=== PATIENT | female | born 1970 | race Caucasian/White ===

== ENCOUNTER 2018-07-25 04:25 | Emergency (ER) | payer OTHER ==
--- OUTSIDE RECORDS SUMMARY | 2018-07-25 04:27 | XMS REPORT | Clinical Summary ---
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 thickened and poorly mobile. Severe prosthetic mitral stenosis. Estimated mean mitral valve gradient 30 mmHg at a heart rate of 89 b/min, with a valve area of 1.25 cm2. Mitral valve high velocity and pressure gradient is in part due to high CO. Insufficient TR jet to estimate PA systolic pressure. However, PA pressures are elevated based on MS velocities. FINDINGS: LV: LV size is normal. LV EF is normal. Overall wall motion is normal. Estimated EF is 65-69% RV: RV size is normal. RV systolic function is normal. LA: LA volume is severely enlarged. RA: RA size is normal. AO: Aortic root diameter is normal in size. Ascending aorta diameter is normal. RUFINO: No pericardial effusion. AV: No structural AV abnormalities noted. MV: Bioprosthetic mitral valve implanted with an angle towards the LVOT. Cusps are thickened and poorly mobile. Severe prosthetic mitral stenosis. Estimated mean mitral valve gradient 30 mmHg at a heart rate of 89 b/min, with a valve area of 1.25 cm2. Mitral valve high velocity and pressure gradient is in part due to high flow state. PV: No structural PV abnormalities noted. A trace of pulmonic regurgitation. TV: No structural TV abnormalities noted. Other: Insufficient TR jet to estimate PA systolic pressure. However, PA pressures are elevated based on MS velocities. MEASUREMENTS: 2D Parasternal [place] LVOT 1.9 cm LA Ds 3.6 cm LVIDd 4.3 cm Index 2.8 cm/m Ao An 2.1 cm LVIDs 2.2 cm Ao Rtd 2.9 cm Index 1.9 cm/m LV%fs 48.8 % LV Mass 123.3 g (87-129) IVSd 1 cm LVM Index 79.5 g/m2 LVPWd 0.8 cm RWT 0.4 LA Sng Plane LA Area 24.7 cm2 (8.8-23.4) LA Vol 93.9 ml Index 60.6 ml/m LA LngAx 5.3 cm DOPPLER LVOT Forward Flow LVOTpkVel 147.1 cm/s LVOTpkPG 8.7 mmHg LVOT TVI 29.6 cm LVOTmnPG 5.1 mmHg MV For Flow/Valve Assess MV pkVel 274.7 cm/s MV Mean G 16.5 mmHg MV pkPG 30.2 mmHg MV TVI 74.2 cm RVOT Stroke Vol reji 2.6 cm CO 8.2 l/min TVI 17.3 cm CI 5.3 l/m/m2 Tm 322 msec HR 88 bpm SV 93 ml Signed 01/26/2018 10:48 AM Ruben Miller M.D. Performing Organization Address City/State/Zipcode Phone Number [facility] [address] [place] [address] Thyroid stimulating hormone (01/26/2018 4:00 AM WEATHER ALGORITHM SCIENTIST) TSH 0.54 0.27 - 4.20 uIU/mL [facility] Specimen Plasma specimen Performing Organization Address City/[facility] Phone Number [facility] DEPARTMENT OF PATHOLOGY AND [address] [place] [phone] [address] T4, free (01/26/2018 4:00 AM WEATHER ALGORITHM SCIENTIST) T4, free 1.3 0.9 - 1.7 ng/dL [facility] Specimen Plasma specimen Performing Organization Address [facility] Phone Number [facility] DEPARTMENT OF PATHOLOGY AND [address] [place] [phone] [address] Lipid panel (01/26/2018 4:00 AM WEATHER ALGORITHM SCIENTIST) Cholesterol 130 <200 mg/dL [facility] Triglycerides 117 <150 mg/dL [facility] HDL cholesterol 35 (L) >40 mg/dL [facility] LDL cholesterol 76Comment: Result <100 mg/dL [place] obtained by direct RELIGION LDL measurement [facility] Lipid panel [facility] interpretation Comment: RELIGION Total Cholesterol (mg/dL) [facility] <200 Desirable 020-275Fcgfoyilfl-lxqw >=240High Triglycerides (mg/dL) <150 Normal 834-501Khtjlivqfy-ykcb 200-499High >=500Very high HDL Cholesterol (mg/dL) <40Low (male) <40Low (female) LDL Cholesterol (mg/dL) <100 Optimal 100-129Near or above optimal 497-847Pyjnnzbszd-zori 160-189High >=190Very high Risk Catergories that modify LDL goals. Risk CatergoriesLDL goal (mg/dL) CHD and CHD risk equivalent<100 (10-year risk >20%) Multiple (2+) risk factors <130 (10-year risk=<20%) 0-1 risk factors <160 (<10-year risk) Defining levels of lipids in metabolic syndrome Triglycerides>=150 mg/dL HDL Cholesterol Men<40 mg/dL Women<40 mg/dL Non-HDL cholesterol is a second target for therapy in persons with high triglycerides (>=200 mg/dL) Specimen Plasma specimen Performing Organization Address [facility]/Zipcode Phone Number [facility] DEPARTMENT OF PATHOLOGY AND [address] [place] [phone] [place] [address] XR Abdomen Acute Inc Chest (01/25/2018 8:27 PM WEATHER ALGORITHM SCIENTIST) Specimen Narrative Performed At EXAMINATION: XR ABDOMEN ACUTE INC CHEST RADIANT CLINICAL HISTORY: Nauseavomiting COMPARISON:03/13/2012 chest x-ray. IMPRESSION: Nonspecific, nonobstructive bowel gas pattern. No free intraperitoneal gas or air-fluid levels visualized. The lungs are clear. No pleural effusion or pneumothorax. The cardiomediastinal silhouette is normal. Prior sternotomy. No acute bony abnormality. [facility]-[id number] Procedure Note Interface, Radiology Results Incoming - 01/25/2018 8:41 PM WEATHER ALGORITHM SCIENTIST EXAMINATION: XR ABDOMEN ACUTE INC CHEST CLINICAL HISTORY: Nausea vomiting COMPARISON: 03/13/2012 chest x-ray. IMPRESSION: Nonspecific, nonobstructive bowel gas pattern. No free intraperitoneal gas or air-fluid levels visualized. The lungs are clear. No pleural effusion or pneumothorax. The cardiomediastinal silhouette is normal. Prior sternotomy. No acute bony abnormality. [facility]-[id number] Performing Organization Address City/[facility] Centercode Phone Number [address] [address] Alcohol level, blood (01/25/2018 7:35 PM WEATHER ALGORITHM SCIENTIST) Alcohol None Detected mg/dL [facility] Comment: HOSPITAL Normal None Detected Legal Intoxication in [place]80 mg/dL (0.08%) - Whole Blood Toxic Kqiuzvpkopjlt125 mg/dL (0.2%) Potentially Dmkas588 - 500 mg/dL (0.35 - 0.5%) Alcohol percent None Detected % [facility] Specimen Plasma specimen Performing Organization Address City/[facility] Centercofl Phone Number [facility] DEPARTMENT OF PATHOLOGY AND [address] [place] [phone] [facility] MEDICINE [address] [address] Troponin (01/25/2018 5:50 PM WEATHER ALGORITHM SCIENTIST) Troponin <0.30 0.00 - 0.30 [facility] Comment: ng/mL [facility] 0.30 - 1.49 ng/mlMay indicate increased risk of acute coronary syndrome. >=1.5 ng/mlConsistent with acute myocardial infarction. The diagnostic value of a single normal or non-diagnostic result is questionable.Serial samples at 2-6 hour intervals are required to rule out acute myocardial injury. Specimen Plasma specimen Performing Organization Address City/State/Zipcode Phone Number [facility] DEPARTMENT OF PATHOLOGY AND [address] [place] [address] [address] B natriuretic peptide (01/25/2018 5:50 PM WEATHER ALGORITHM SCIENTIST) BNP 153 (H) 0 - 100 pg/mL [facility] Specimen Blood Performing Organization Address City/[facility] Centercode Phone Number [facility] DEPARTMENT OF PATHOLOGY AND [address] [place] [phone] [address] Comprehensive metabolic panel (01/25/2018 5:50 PM WEATHER ALGORITHM SCIENTIST) Sodium 137 135 - 148 [facility] mEq/L [facility] Potassium 3.5 3.5 - 5.0 [facility] mEq/L [facility] Chloride 99 98 - 112 mEq/L [facility] CO2 22 (L) 24 - 31 mEq/L [facility] Anion gap 16@ANIO (H) 7 - 15 mEq/L [facility] BUN 32 (H) 6 - 20 mg/dL [facility] Creatinine 1.49 (H) 0.50 - 0.90 [facility] mg/dL HOSPITAL Glucose 116 (H) 65 - 99 mg/dL [facility] Calcium 9.1 8.3 - 10.2 [facility] mg/dL [facility] Protein 6.9 6.3 - 8.3 g/dL [facility] Comment: HOSPITAL [place] 4.6-7.0 g/dL 1 week 4.4-7.6 g/dL 7 months-1year5.1-7.3 g/dL 1-2 years5.6-7.5 g/dL >3 years6.0-8.0 g/dL 18-150 6.3-8.3 g/dL Albumin 3.6 3.5 - 5.0 g/dL [facility] A/G ratio 1.1 0.7 - 3.8 [facility] Alkaline phosphatase 58 35 - 104 U/L [facility] AST 36 (H) 10 - 35 U/L [facility] ALT 41 5 - 50 U/L [facility] Total bilirubin 0.6 0.0 - 1.2 [facility] mg/dL HOSPITAL Specimen Plasma specimen Performing Organization Address City/State/Zipcode Phone Number [facility] DEPARTMENT OF PATHOLOGY AND [address] [place] [address] GENOMIC MEDICINE [facility] [address] [place] [address] ECG 12 lead (01/25/2018 5:27 PM WEATHER ALGORITHM SCIENTIST) Ventricular rate 92 [facility] Atrial rate 92 [facility] MS interval 144 [facility] QRSD interval 100 [facility] QT interval 390 [facility] QTC interval 482 [facility] P axis 1 -26 [facility] QRS axis 1 84 [facility] T wave axis 73 [facility] EKG impression Sinus rhythm with occasional premature ventricular complexes- Possible Anterior infarct , age undetermined-Abnormal ECG-In automated comparison with ECG of 25-NOV-2016 16:52,-premature ventricular comple [facility] MUSE xes are now present- Specimen Narrative Performed At Performing Organization Address City/[facility]/Zipcode Phone Number [facility] [address] [place] [address] after 07/24/2017 Insurance Payer Benefit Plan / Subscriber ID Effective Dates Phone Address Type Group MEDICARE MEDICARE PART A xxxxxxxxxxx 2005-Present [place], [place] Medicare AND B ([place]) [place] [address] Advance Directives Patient has advance care planning documents, and code status on file. For more information, please contact:[facility] [place] [phone] Code Status Date Activated Date Inactivated Comments Full Code 01/25/2018 11:35 PM 01/27/2018 5:45 PM Code Status decision reached by: Patient
--- OUTSIDE RECORDS SUMMARY | 2018-07-25 04:28 | XMS REPORT ---
:1970 Author Organization [facility] Address [address] [place] [address] Care Team Providers Name Role Phone Unavailable Unavailable Unavailable Problems This patient has no known problems. Allergies, Adverse Reactions, Alerts This patient has no known allergies or adverse reactions. Medications This patient has no known medications.
[2018-07-25 06:11] LABS: Urine Blood 3+ (NEG); Urine Glucose NEGATIVE (NEG); Urine Specific Gravity 1.015 (1.005-1.030)
[2018-07-25 06:12] LABS: Urine Protein NEGATIVE (NEG)
[2018-07-25 06:20] LABS: Absolute Lymphocytes (CBC) 2.1 K/uL (0.7-4.9); Absolute Monocytes 0.6 K/uL (0.1-1.3); Absolute Neutrophil 2.8 K/uL (1.8-8.0); Basophils % 1.3 % (0-1.3); Eosinophils % 3.3 % (0-4.4); Hematocrit 40.4 % (36.0-45.0); Lymphocytes % 36.8 % (15.3-44.8); Monocytes % 9.9 % (3.3-12.3); RBC Red Blood Cell Count 4.36 M/uL (3.86-4.86)
[2018-07-25 06:29] LABS: Barbiturates NEGATIVE (NEGATIVE); Benzodiazepines POSITIVE (NEGATIVE); Cocaine NEGATIVE (NEGATIVE); METHAMPHETAM POSITIVE (NEGATIVE); Methadone NEGATIVE (NEGATIVE); Opiates NEGATIVE (NEGATIVE); Phencyclidine NEGATIVE (NEGATIVE); THC Cannibis POSITIVE (NEGATIVE)
[2018-07-25 06:33] LABS: Potassium 3.1 mmol/L (3.5-5.1); Protime INR 1.03
--- NOTE | 2018-07-25 06:44 | ER ---
Nurse's Notes [facility] Name: Naveen Collazo Age: 48 yrs Sex: Female : 1970 Arrival Date: 07/25/2018 Time: 04:26 Bed 4 Private MD: Diagnosis: Transient Ishemic Attack. Substance abuse Presentation: 07/25 04:47 Presenting complaint: Patient states: she is feeling very strange with symptoms bb starting approx 6 hours ago pt states she is having a lot of body pain, with a headache and her vision is going in and out and is more blurry than normal, she is having difficulty breathing, she feels like something is sitting on her chest which is the same symptoms she had the last time when she had a PE, she states she is also having difficulty speaking. Transition of care: patient was not received from another setting of care. Onset of symptoms was July 24, 2018 at 23:00. Risk Assessment: Do you want to hurt yourself or someone else? Patient reports no desire to harm self or others. Initial Sepsis Screen: Does the patient meet any 2 criteria? No. Patient's initial sepsis screen is negative. Does the patient have a suspected source of infection? No. Patient's initial sepsis screen is negative. Care prior to arrival: None. 04:47 Method Of Arrival: Ambulatory bb 04:47 Acuity: POLINA 2 bb CORE ANALYST: 04:53 LMP 07/25/2018 bb Historical: - Allergies: 04:53 BuSpar; bb 04:53 PENICILLINS; bb 04:53 Sulfa (Sulfonamide Antibiotics); bb 04:53 Toradol; bb 04:53 Morphine; bb - Home Meds: 04:53 Adderall XR 30 mg Oral cp24 2 cap once daily [Active]; gabapentin 800 mg Oral tab 1 tab bb 3 times per day [Active]; lisinopril 10 mg Oral tab 1 tab once daily [Active]; trazodone 100 mg Oral tab 4 tabs nightly [Active]; - PMHx: 04:53 ADD/ADHD; Back pain; Chronic pain; DVT; Hypertension; insomnia; ocd; PTSD; Pulmonary bb Embolism; - PSHx: 04:53 open heart surg; perferated bowel; vein replacement; heart valve replacement; bb - Immunization history:: Adult Immunizations up to date. - Social history:: Smoking status: Patient uses tobacco products, denies chronic smoking, but will smoke occasionally. - Ebola Screening: : No symptoms or risks identified at this time. Screenin:54 VAN Screening: Arm Drift: Patient shows no arm weakness. Patient is VAN negative. Fall bb Risk None identified. 04:55 Abuse screen: Denies threats or abuse. Nutritional screening: No deficits noted. bb Tuberculosis screening: No symptoms or risk factors identified. 05:49 The patient is alert, able to follow commands. The patient does not exhibit slurred or ea garbled speech The patient is not exhibiting difficulty speaking. The patient does not exhibit difficulty understanding words. The patient is able to swallow own secretions with no drooling or need for suction. Patient tolerated one teaspoon of water. No drooling, immediate coughing, gurgling, or clearing of the throat was noted. The patient tolerated 90mL of water. No drooling, immediate coughing, gurgling, or clearing of the throat was noted. The patient passed the bedside swallow screening. Oral medications may be given as ordered. Contact Physician for further diet orders. Assessment: 04:58 General: Appears in no apparent distress. Behavior is agitated, restless. Pain: ea Complains of pain in chest. Neuro: Level of Consciousness is awake, alert, obeys commands, Oriented to person, place, time. Neuro: Computer Systems Administrator are equal bilaterally Moves all extremities. Speech is normal, Facial symmetry appears normal. Cardiovascular: Patient's skin is warm and dry. Respiratory: Airway is patent Respiratory effort is even, unlabored, Respiratory pattern is regular, symmetrical, Breath sounds are clear bilaterally. Derm: Skin is pink, warm \T\ dry. 05:00 Reassessment: Patient and/or family updated on plan of care and expected duration. Pain ea level reassessed. Patient is alert, oriented x 3, equal unlabored respirations, skin warm/dry/pink. 06:40 Reassessment: Pt reports she talked to her physician pt refused CT, stated her ea physician would take care of her at [facility]. Pt states she will go AMA, she did not want to be transferred to another facility, stated she would go by private vehicle per her daughter. Pt verbalized the understanding of possible adverse effects of leaving AMA, pt signed AMA form, left ED ambulatory. Vital Signs: 04:53 BP 185 / 95; Pulse 86; Resp 18 S; Temp 97.9(O); Pulse Ox 100% on R/A; Weight 56.7 kg bb (R); Height 5 ft. 2 in. (157.48 cm) (R); Pain 8/10; 05:45 BP 160 / 107; Pulse 86; Resp 18; Pulse Ox 100% on R/A; tl2 04:53 Body Mass Index 22.86 (56.70 kg, 157.48 cm) ED Course: 04:26 Patient arrived in ED. am2 04:36 Fito Pichardo MD is Attending Physician. pkl 04:52 Triage completed. bb 04:53 Arm band placed on Patient placed in an exam room, on a stretcher, on pulse oximetry. bb EKG completed in triage. Results shown to MD. 04:54 Patient has correct armband on for positive identification. Placed in gown. Bed in low bb position. Call light in reach. Side rails up X2. Pulse ox on. NIBP on. Warm blanket given. 05:11 Missed attempt(s): 22 gauge in right antecubital area. ea 06:15 Ct Stroke Brain Wo Cont In Process Unspecified. EDMS 06:21 Initial lab(s) drawn, by me, sent to lab. Missed attempt(s): 20 gauge in left upper bb arm. Bleeding controlled, band aid applied, catheter tip intact. Inserted saline lock: 22 gauge in left antecubital area, using aseptic technique. 06:24 Stroke CXR 1 View In Process Unspecified. EDMS 06:39 CT Stroke Brain w/o Contrast In Process Unspecified. EDMS 06:43 No provider procedures requiring assistance completed. IV discontinued, intact, ea bleeding controlled, No redness/swelling at site. Pressure dressing applied. Administered Medications: No medications were administered Outcome: 06:43 AMA AMA form signed ea 06:49 Patient left the ED. ea Signatures: Dispatcher [employer] EDMS Fito Pichardo MD MD pkMarylu Otto RN RN Tierney Rosas RN RN tl2 Miranda Waddell am2 Marci Iraheta RN RN ea
--- NOTE | 2018-07-25 06:44 | EDPHYS ---
Physician Documentation [facility] Name: Naveen Collazo Age: 48 yrs Sex: Female : 1970 Arrival Date: 07/25/2018 Time: 04:26 Bed 4 Private MD: ED Physician Fito Pichardo HPI: 07/25 05:15 This 48 yrs old Female presents to ER via Ambulatory with complaints of pkl Breathing Difficulty, Chest Pain. 05:15 The patient's problem is reported as difficulty walking, off balance, dysphasia, pkl incoherent speech, visual difficulty, blurred vision. Onset: The symptoms/episode began/occurred 6 hour(s) ago. Associated signs and symptoms: Pertinent positives: ataxia, blurred vision, chest pain, confusion, headache. BONSAI TENDER: 04:53 LMP 07/25/2018 bb Historical: - Allergies: 04:53 BuSpar; bb 04:53 PENICILLINS; bb 04:53 Sulfa (Sulfonamide Antibiotics); bb 04:53 Toradol; bb 04:53 Morphine; bb - Home Meds: 04:53 Adderall XR 30 mg Oral cp24 2 cap once daily [Active]; gabapentin 800 mg Oral tab 1 tab bb 3 times per day [Active]; lisinopril 10 mg Oral tab 1 tab once daily [Active]; trazodone 100 mg Oral tab 4 tabs nightly [Active]; - PMHx: 04:53 ADD/ADHD; Back pain; Chronic pain; DVT; Hypertension; insomnia; ocd; PTSD; Pulmonary bb Embolism; - PSHx: 04:53 open heart surg; perferated bowel; vein replacement; heart valve replacement; bb - Immunization history:: Adult Immunizations up to date. - Social history:: Smoking status: Patient uses tobacco products, denies chronic smoking, but will smoke occasionally. - Ebola Screening: : No symptoms or risks identified at this time. ROS: 05:15 Neck: Negative for injury, pain, and swelling. pkl 05:15 Eyes: Positive for blurry vision. 05:15 ENT: Negative for acute changes. 05:15 Neck: Negative for stiffness. 05:15 Cardiovascular: Positive for chest pain. 05:15 Respiratory: Positive for shortness of breath. 05:15 Abdomen/GI: Negative for abdominal pain, nausea, vomiting, and diarrhea. 05:15 Back: Negative for acute changes. 05:15 : Negative for urinary symptoms. 05:15 MS/extremity: Negative for acute changes. 05:15 Skin: Negative for rash. 05:15 Neuro: Positive for altered mental status, gait disturbance, speech changes, visual changes. Exam: 05:25 Radiologist reports: No acute findings pkl 05:25 Head/Face: Normocephalic, atraumatic. 05:25 Eyes: blurred vision. 05:25 ENT: Exam is negative for acute changes. 05:25 Neck: Exam negative for nuchal rigidity. 05:25 Chest/axilla: Exam negative for acute changes. 05:25 Cardiovascular: Rate: normal, Rhythm: regular. 05:25 Respiratory: the patient does not display signs of respiratory distress, Respirations: normal, Breath sounds: are clear throughout. 05:25 Abdomen/GI: Exam negative for acute changes. 05:25 Back: Exam negative for acute changes. 05:25 : Exam negative for acute changes. 05:25 Musculoskeletal/extremity: Exam is negative for abrasion. 05:25 Skin: Exam negative for rash. 05:25 Neuro: Orientation: appropriate for stated age, Cranial nerves: grossly normal, Cerebellar function: dysmetria is noted on both sides, Motor: is normal, Gait: is unsteady. Vital Signs: 04:53 BP 185 / 95; Pulse 86; Resp 18 S; Temp 97.9(O); Pulse Ox 100% on R/A; Weight 56.7 kg bb (R); Height 5 ft. 2 in. (157.48 cm) (R); Pain 8/10; 05:45 BP 160 / 107; Pulse 86; Resp 18; Pulse Ox 100% on R/A; tl2 04:53 Body Mass Index 22.86 (56.70 kg, 157.48 cm) bb MDM: 04:36 Patient medically screened. pkl 05:25 Data reviewed: vital signs, nurses notes. ED course: Talked to Dr. Gr ( [facility] Neurologist [facility] ) Request CT Head and Neck Angio stat. 06:04 ED course: Discussed plan to transfer to [facility] for further evaluations. Patient alan requests transfer to [facility] because her Doctors are there. 06:23 ED course: Talked to Dr. Melara regarding IV Thrombolytic. Recommend no IV pkl Thrombolytic because patient is outside the window of 4 hours last known well.. 06:34 ED course: Patient said she talked to Dr. Tobias and he wanted her to go to [facility] and he will admit her there. Patient said she will sign AMA . 06:43 ED course: Patient alert and ambulate with steady gait. Requests pain medications pkl before leaving. 07/25 05:12 Order name: Basic Metabolic Panel; Complete Time: 06:46 pkl 07/25 05:12 Order name: CBC with Diff; Complete Time: 06:30 pkl 07/25 05:12 Order name: Protime (+inr) pkl 07/25 05:12 Order name: Ptt, Activated pkl 07/25 05:12 Order name: UDS; Complete Time: 06:30 pkl 07/25 05:12 Order name: ETOH Level; Complete Time: 06:46 pkl 07/25 05:12 Order name: CT Stroke Brain w/o Contrast pkl 07/25 05:12 Order name: Stroke CXR 1 View pkl 07/25 06:10 Order name: Urine Dipstick--Ancillary (enter results) mt 07/25 06:10 Order name: Urine --Ancillary (enter results) mt 07/25 06:13 Order name: Urine --Ancillary; Complete Time: 06:15 EDMS 07/25 06:13 Order name: Urine Dipstick-Ancillary; Complete Time: 06:15 EDMS 07/25 06:15 Order name: Ct Stroke Brain Wo Cont EDMS 07/25 05:12 Order name: EKG; Complete Time: 05:21 pkl 07/25 05:12 Order name: Cardiac monitoring; Complete Time: 05:13 pkl 07/25 05:12 Order name: EKG - Nurse/Tech; Complete Time: 05:13 pkl 07/25 05:12 Order name: IV Saline Lock; Complete Time: 06:14 pkl 07/25 05:12 Order name: Labs collected and sent; Complete Time: 06:14 pkl 07/25 05:12 Order name: NPO; Complete Time: 05:13 pkl 07/25 05:12 Order name: O2 Per Protocol; Complete Time: 05:13 pkl 07/25 05:12 Order name: O2 Sat Monitoring; Complete Time: 05:13 pkl 07/25 05:12 Order name: Stroke Swallow Screen; Complete Time: 05:49 pkl Administered Medications: No medications were administered Disposition: 07/25/18 06:43 Patient has left against medical advice. Impression: Transient Ishemic Attack. Substance abuse. - Patients states they are going to Home. - Condition is Stable. - Problem is new. - Symptoms have improved. Signatures: Dispatcher [employer] EDDC Fito Pichardo MD MD pkl Marylu Gautam RN RN bb Antunez, Elena, RN RN ea Corrections: (The following items were deleted from the chart) 06:41 06:29 Head angio ordered. EDDC EDMS 06:41 06:29 Neck Angio ordered. [facility] EDDC 06:49 06:43 07/25/2018 06:43 Patients has left against medical advice. Impression: Transient ea Ishemic Attack. Substance abuse. Patient states they are going to Home. Condition is Stable. Problem is new. Symptoms have improved. pkl
[2018-07-25 06:56] VITALS: TEMP 97.9; O2SAT 100
[2018-07-25 06:57] VITALS: BP 160/107
--- NOTE | 2018-07-25 08:04 | RAD REPORT ---
EXAM DESCRIPTION: Luisa Single View07/25/2018 5:55 am CLINICAL HISTORY: Chest pain COMPARISON: 2017 FINDINGS: Mild interstitial opacities suspected within the right lung base. The left lung probably i s clear. . The heart is mildly enlarged. Postsurgical changes involve the chest. IMPRESSION: Mild interstitial opacities within the right lung base may indicate a mild atypical pneu monia
--- NOTE | 2018-07-25 11:37 | EKG ---
Test Date: 2018-07-25 Test Time: 04:39:30 Stencil Sprayer: EUNICE MEASUREMENT RESULTS: Intervals: Rate: 85 MT: 146 QRSD: 86 QT: 386 QTc: 459 [place]: P: -29 MT: 146 QRS: 82 T: 74 INTERPRETIVE STATEMENTS: Normal sinus rhythm Anterior infarct, age undetermined Abnormal ECG Compared to ECG 11/21/2016 23:33:37 Myocardial infarct finding now present Right-axis deviation no longer present ST (T wave) deviation no longer present Electronically Signed On 07-25-18 11:35:44 CDT by Scottie Acosta
--- NOTE | 2018-07-26 13:28 | RAD REPORT ---
EXAM DESCRIPTION: CT - Ct Stroke Brain Wo Cont - 07/25/2018 6:36 am ADDENDUM #1 THIS REPORT CONTAINS FINDINGS THAT MAY BE CRITICAL TO PATIENT CARE: The findings were verbally discussed via telephone conference with Dr. Fito Pichardo by Dr. Junie Ramirez on 07/25/2018 5:29 AM CDT .The results were acknowledged and understood. Electronically signed by: Jacy Ramirez MD 07/25/2018 5:30 AM CDT End of Addendum EXAM DESCRIPTION: CT Head Without Intravenous Contrast CLINICAL HISTORY: The patient is 48 years old and is Female; blurred vision TECHNIQUE: Axial computed tomography images of the head/brain without intravenous contrast. Sagitt al and coronal reformatted images were created and reviewed. This CT exam was performed using one o r more of the following dose reduction techniques: automated exposure control, adjustment of the mA and/or kV according to patient size, and/or use of iterative reconstruction technique. COMPARISON: CT head November 22, 2016. FINDINGS: BRAIN: Small area of encephalomalacia within the right parieto-occipital lobe is again n oted with coarse calcification present. The patton-white differentiation is otherwise maintained. Mild compensatory enlargement of the right lateral ventricle is present. The overall appearance is stable. Evidence of prior left basal ganglia. Infarcts are noted. There is no intracranial hemorrhage, mass effect, or midline shift. There are no extra-axial fluid collections. VENTRICLES: Unremarkable. No ventriculomegaly. BONES/JOINTS: No acute fracture. SOFT TISSUES: Unremarkable. SINUSES: Unremarkable as visualized. No acute sinusitis. MASTOID AIR CELLS: Unremarkable as visualized. No mastoid effusion. IMPRESSION: No acute intracranial findings. Chronic findings as above. Electronically signed by: Jacy Ramirez MD 07/25/2018 5:22 AM CDT Due to temporary technical issues with the PACS/Fluency reporting system, reports are being signed by the in house radiologist as a courtesy to ensure prompt reporting. The interpreting radiologist is f ully responsible for the content of the report.
== END 2018-07-25 06:49 | disposition left against medical advice (07) ==
LOC: ER 04:25
DX: G45.9 Transient cerebral ischemic attack, unspecified (principal); F19.10 Other psychoactive substance abuse, uncomplicated; I10 Essential (primary) hypertension; F90.9 Attention-deficit hyperactivity disorder, unspecified type; F43.10 Post-traumatic stress disorder, unspecified; Z72.0 Tobacco use; Z88.0 Allergy status to penicillin; Z88.2 Allergy status to sulfonamides; Z88.5 Allergy status to narcotic agent; Z88.8 Allergy status to other drugs, medicaments and biological substances; Z86.718 Personal history of other venous thrombosis and embolism; Z95.4 Presence of other heart-valve replacement
CPT/HCPCS: 36415; 70450; 71045; 80048; 80307; 80320; 81003; 81025; 85025; 85610; 85730; 93005; 99284